=== PATIENT | female | born 1975 | race Caucasian/White ===

== ENCOUNTER 2017-05-20 15:15 | Emergency (ER) | payer MEDICAID, OTHER ==
[~2017-05-20] VITALS: Ht 182.9 cm; Wt 104.6 kg
[~2017-05-20 15:15] MED LIST: AMIT50 PO; DILA100C PO; FLUC150T PO; FOLI1TAB; HYDR200T42 PO; LAMO100 PO; MACR100C PO; METR28.4 PV; OVCOTAB PO; OXYBXL5; PERC5TAB12 PO; PRED10PA PO; PROC10TA4 PO; TINI500T PO
[2017-05-20 15:30] VITALS: BP 132/73; PULSE 94; RESP 16; TEMP 98.3; O2SAT 96
[2017-05-20] MEDS ORDERED: MORPHINE SULFATE 4 MG/ML INJ IV PUSH ONE (17:15)
[2017-05-20] MEDS ORDERED: DILA100C PO (17:42)
[2017-05-20] MEDS ORDERED: PRED5TAB PO (17:42)
[2017-05-20] MEDS ORDERED: [UNRECOGNIZED DRUG - CODE] PO (17:42)
[2017-05-20] MEDS ORDERED: ESTRPOW15 PO (17:42)
[2017-05-20] MEDS ORDERED: OXYBXL5 PO (17:42)
[2017-05-20] MEDS ORDERED: PLAQ200T PO (17:42)
[2017-05-20] MEDS ORDERED: AMIT50TA3 PO (17:42)
[2017-05-20] MEDS ORDERED: LAMI200T PO (17:42)
--- NOTE | 2017-05-20 17:58 | RADRPT ---
EXAM DATE/TIME: 05/20/2017 17:30 [place] COMPARISON: No previous studies available for comparison. INDICATIONS : Right leg swelling. MEDICAL HISTORY : Seizures. Cataracts. Glasses. Epilepsy. Migraine. Urinary tract infection. Osteoporosis. Lupus. Hay fever. SURGICAL HISTORY : Oral surgery. ENCOUNTER: Initial ACUITY: 1 day PAIN SCORE: 2/10 LOCATION: Right leg. TECHNIQUE: Venous ultrasound of the leg was performed from the inguinal ligament to the proximal calf. Real-aurora e, color Doppler and spectral tracing, compression and augmentation techniques were used. FINDINGS: There is normal compressibility of the deep venous system from the inguinal region to the proximal ca lf. No echogenic clot is seen in the lumen of the common femoral, femoral, popliteal, and posterior tibial veins. There is a normal response of the venous system to proximal and distal augmentation an d respiration. CONCLUSION: Normal examination. Roderick Ayala MD on May 20, 2017 at 17:57 Board Certified Radiologist. This report was verified electronically.
[2017-05-20 18:17] LABS: AUTOMATED NEUTROPHIL # 2.8 TH/MM3 (1.8-7.7); BASOPHIL % 0.5 % (0.0-2.0); EOSINOPHIL # 0.1 TH/MM3 (0-0.4); EOSINOPHIL % 1.3 % (0.0-4.0); HEMATOCRIT 37.3 % (35.0-46.0); HEMO FLAGS DIFF FINAL; LYMPH % 29.5 % (9.0-44.0); LYMPHOCYTE # 1.4 TH/MM3 (1.0-4.8); MEAN CELL VOLUME 89.8 FL (80.0-100.0); MEAN CORPUSCULAR HGB CONC 33.4 % (32.0-36.0); MONO % 11.6 % (0.0-8.0); NEUT % 57.1 % (16.0-70.0); PLATELET COUNT 164 TH/MM3 (150-450); RED BLOOD COUNT 4.15 MIL/MM3 (4.00-5.30); WHITE BLOOD COUNT 4.9 TH/MM3 (4.0-11.0)
[2017-05-20] MEDS ORDERED: CLIN1CAP6 PO (18:51)
--- NOTE | 2017-05-20 18:51 | PD ---
HPI Chief Complaint: Edema Time Seen by Provider: 17:03 Travel History International Travel<30 days: No Contact w/Intl Traveler<30days: No Traveled to known affect area: No History of Present Illness HPI Patient is a 41-year-old female who comes in complaining of right leg pain. She says the pain started suddenly while she was shopping today. She says she does not recall any injury. She didn't notice an area of redness to the lower leg. She denies any cuts or wounds to that area. She has not had fever or chills. She denies chest pain or shortness of breath. She says she did just start hormone replacements a week and a half ago. She says she has never had pain like this before. She says the pain is in her calf and her vera. PFSH Past Medical History Autoimmune Disease: Yes (Lupus) Cancer: No Cardiovascular Problems: No Diabetes: No Diminished Hearing: No Endocrine: No Genitourinary: No Hepatitis: No Hiatal Hernia: No Immune Disorder: No Musculoskeletal: Yes (OSTEOPOROSIS) Neurologic: Yes (EPILEPSY) Psychiatric: No Reproductive: No Respiratory: No Immunizations Current: Yes Migraines: Yes Seizures: Yes Thyroid Disease: No Influenza Vaccination: No ?: Not LMP: menapause Past Surgical History Abdominal Surgery: No AICD: No Body Medical Devices: EPILEPSY, OVER ACTIVE BLADDER, LUPUS, Cardiac Surgery: No Ear Surgery: No Endocrine Surgery: No Genitourinary Surgery: No Gynecologic Surgery: No Joint Replacement: No Oral Surgery: Yes Pacemaker: No Thoracic Surgery: No Other Surgery: Yes Social History Alcohol Use: No Tobacco Use: No Substance Use: No Allergies-Medications (Allergen,Severity, Reaction): Coded Allergies: Cipro (Verified Allergy, Severe, Rash, 05/20/17) Dilaudid (Verified Allergy, Severe, Rash, 05/20/17) Sulfa (Verified Allergy, Severe, Rash, 05/20/17) Bactrim (Verified Allergy, Unknown, 05/20/17) Reported Meds & Prescriptions Reported Meds & Active Scripts Active Clindamycin (Clindamycin HCl) 300 Mg Cap 600 Mg PO Q8H 7 Days Reported Estradiol (Estradiol Micronized) 1 Pow Pow 1 Tab PO DAILY Progesterone Milled (Progesterone) 1 Pow Pow 1 Tab PO DAILY Prednisone 5 Mg Tab 5 Mg PO BID Dilantin (Phenytoin Extended) 100 Mg Cap 200 Mg PO BID Ditropan XL 24 HR (Oxybutynin Chloride) 5 Mg Tab 5 Mg PO DAILY Lamictal (Lamotrigine) 200 Mg Tab 200 Mg PO TID Plaquenil (Hydroxychloroquine Sulfate) 200 Mg Tab 200 Mg PO BID Take with food Amitriptyline (Amitriptyline HCl) 50 Mg Tab 50 Mg PO HS Review of Systems Except as stated in HPI: all other systems reviewed are Neg General / Constitutional: No: Fever, Chills HENT: No: Headaches, Lightheadedness Cardiovascular: No: Chest Pain or Discomfort Respiratory: No: Shortness of Breath Gastrointestinal: No: Nausea, Vomiting Musculoskeletal: Positive: Edema, Pain Skin: Positive Change in Pigmentation, No Itching Neurologic: No: Weakness, Dizziness Physical Exam Narrative GENERAL: Awake and alert, in no acute distress. SKIN: Focused skin assessment warm/dry. 6 cm linear area of erythema to the vera, warm to the touch. No evidence of abscess or wound. HEAD: Atraumatic. Normocephalic. EYES: Pupils equal and round. No scleral icterus. No injection or drainage. ENT: Mucous membranes pink and moist. NECK: Trachea midline. No JVD. CARDIOVASCULAR: Regular rate and rhythm. No murmur appreciated. RESPIRATORY: No accessory muscle use. Clear to auscultation. Breath sounds equal bilaterally. MUSCULOSKELETAL: No obvious deformities. No clubbing. No cyanosis. No edema. Tender to palpation of the right calf as well as the right vera. No tenderness to the hip or the knee. Pedal pulses intact. NEUROLOGICAL: Awake and alert. No obvious cranial nerve deficits. Motor grossly within normal limits. Normal speech. PSYCHIATRIC: Appropriate mood and affect; insight and judgment normal. Data Data Last Documented VS Vital Signs Date Time Temp Pulse Resp B/P Pulse Ox O2 Delivery O2 Flow Rate FiO2 05/20/17 17:06 Room Air 05/20/17 15:30 98.3 94 16 132/73 96 Orders Iv Access Insert/Monitor (05/20/17 17:09) Complete Blood Count With Diff (05/20/17 17:09) Comprehensive Metabolic Panel (05/20/17 17:09) Act Partial Throm Time (Ptt) (05/20/17 17:09) Prothrombin Time / Inr (Pt) (05/20/17 17:09) Us Leg Venous Doppler (05/20/17 ) Morphine Inj (Morphine Inj) (05/20/17 17:15) Acetamin-Hydrocod 325-5 Mg ([place] 5-325 (05/20/17 19:00) Labs Laboratory Tests Test 05/20/17 05/20/17 18:00 18:53 White Blood Count 4.9 TH/MM3 Red Blood Count 4.15 MIL/MM3 Hemoglobin 12.4 GM/DL Hematocrit 37.3 % Mean Corpuscular Volume 89.8 FL Mean Corpuscular Hemoglobin 30.0 PG Mean Corpuscular Hemoglobin 33.4 % Concent Red Cell Distribution Width 13.0 % Platelet Count 164 TH/MM3 Mean Platelet Volume 7.6 FL Neutrophils (%) (Auto) 57.1 % Lymphocytes (%) (Auto) 29.5 % Monocytes (%) (Auto) 11.6 % Eosinophils (%) (Auto) 1.3 % Basophils (%) (Auto) 0.5 % Neutrophils # (Auto) 2.8 TH/MM3 Lymphocytes # (Auto) 1.4 TH/MM3 Monocytes # (Auto) 0.6 TH/MM3 Eosinophils # (Auto) 0.1 TH/MM3 Basophils # (Auto) 0.0 TH/MM3 CBC Comment DIFF FINAL Differential Comment Prothrombin Time 10.5 SEC Prothromb Time International 1.0 RATIO Ratio Activated Partial 26.4 SEC Thromboplast Time Sodium Level 138 MEQ/L Potassium Level 3.9 MEQ/L Chloride Level 103 MEQ/L Carbon Dioxide Level 28.7 MEQ/L Anion Gap 6 MEQ/L Blood Urea Nitrogen 11 MG/DL Creatinine 0.47 MG/DL Estimat Glomerular Filtration 147 ML/MIN Rate Random Glucose 89 MG/DL Calcium Level 8.6 MG/DL Aspartate Amino Transf 18 U/L (AST/SGOT) Alanine Aminotransferase 13 U/L (ALT/SGPT) Albumin 3.3 GM/DL [facility] Medical Decision Making Medical Screen Exam Complete: Yes Emergency Medical Condition: Yes Medical Record Reviewed: Yes Differential Diagnosis DVT versus cellulitis versus muscle strain Narrative Course Patient is a 41-year-old female comes in complaining of pain to her right leg. Exam shows a small area of erythema and warmth as well as tenderness to the Admission. Labs sent show no acute abnormalities. Ultrasound performed of the right lower extremity shows no evidence of DVT. Patient will be given prescriptions for pain medicine as well as antibiotics. She is advised follow- up with her primary care doctor. Advised to return if her symptoms do not improve or if they worsen at any time for repeat ultrasound. Patient is comfortable with this plan at this time. Diagnosis Primary Impression: Leg pain Qualified Code: M79.604 - Pain of right lower extremity Additional Impression: Cellulitis Qualified Code: L03.115 - Cellulitis of right lower extremity Patient Instructions: Cellulitis (ED), General Instructions, Leg Pain (ED) Additional Instructions: Follow-up with her primary care doctor. Take all of your antibiotics. Return to the ED as needed for any worsening symptoms. If you are still having the same pain within the next week, return for repeat ultrasound. Scripts Hydrocodone-Acetaminophen (Lortab)5-325 Mg Tab1 Tab PO Q6H PRN (PAIN) #9 TAB Ref 0 Prov:Rena Jain MD 05/20/17 Clindamycin 300 Mg Hoe063 Mg PO Q8H 7 Days Ref 0 Prov:Rena Jain MD 05/20/17 Disposition: 01 DISCHARGE HOME Condition: Stable Rena Jain MD May 20, 2017 18:51
[2017-05-20] MEDS ORDERED: ACETAMINOPHEN/HYDROcodone 325 MG/5 MG TAB PO ONE (19:00)
[2017-05-20 19:08] LABS: CHLORIDE 103 MEQ/L (98-107); POTASSIUM 3.9 MEQ/L (3.5-5.1); SODIUM (NA) 138 MEQ/L (136-145)
[2017-05-20 19:12] LABS: ANION GAP 6 MEQ/L (5-15); BICARBONATE 28.7 MEQ/L (21.0-32.0); BLOOD UREA NITROGEN 11 MG/DL (7-18)
[2017-05-20 19:14] LABS: APTT (PATIENT) 26.4 SEC (24.3-30.1); PROTHROMBIN TIME - PATIENT 10.5 SEC (9.8-11.6)
[2017-05-20 19:15] LABS: ALT (GPT) 13 U/L (10-53); AST (GOT) 18 U/L (15-37); GLOMERULAR FILTRATION RATE 147 ML/MIN (>89)
[2017-05-20] MEDS ORDERED: HYDR-3533 PO (19:16)
[2017-05-20 19:17] LABS: TOTAL BILIRUBIN ADULT 0.1 MG/DL (0.2-1.0)
[2017-05-20 19:18] LABS: ALKALINE PHOSPHATASE 318 U/L (45-117)
[2017-05-20 19:58] VITALS: BP 135/79; TEMP 97.7
== END 2017-05-20 19:59 | disposition home or self-care (01) ==
LOC: PHED 15:15
DX: M79.604 Pain in right leg (principal); L03.115 Cellulitis of right lower limb; G40.909 Epilepsy, unspecified, not intractable, without status epilepticus; M32.9 Systemic lupus erythematosus, unspecified; M81.0 Age-related osteoporosis without current pathological fracture
CPT/HCPCS: 80053; 85025; 85610; 85730; 93971; 99284